=== PATIENT | male | born 1985 | race Caucasian/White ===

== ENCOUNTER 2016-06-16 23:07 | Emergency (ER) | payer SELFPAY ==
[~2016-06-16 23:07] MED LIST: *DENIES; ASA5GR PO; DURICEF PO; FLORASTOR250 MG PO; PCET PO; PERCOCET1 TA4 PO; ZYVOXPO PO
== END 2016-06-17 00:42 | disposition home or self-care (01) ==
LOC: ER 23:07
DX: R21 Rash and other nonspecific skin eruption (principal); S00.81XD Abrasion of other part of head, subsequent encounter; S10.91XD Abrasion of unspecified part of neck, subsequent encounter; F17.200 Nicotine dependence, unspecified, uncomplicated; Z79.899 Other long term (current) drug therapy
CPT/HCPCS: 99282